=== PATIENT | male | born 1950 | race Caucasian/White ===

== ENCOUNTER 2021-06-17 10:33 | Day surgery (SDC) | payer MEDICARE, OTHER ==
[~2021-06-17] VITALS: Ht 188 cm; Wt 88.3 kg
[~2021-06-17 10:33] MED LIST: CLINDAMYCIN 150 MG/ML, 6ML ONE; TRANEXAMIC ACID 100 MG/ML, 10ML ONE; VANCOMYCIN 1,000 MG ONE
[2021-06-17 11:20] VITALS: BP 146/55
[2021-06-17] MEDS ORDERED: CHOL200040 PO (11:20)
[2021-06-17] MEDS ORDERED: DOXY25TA45 PO (11:20)
[2021-06-17] MEDS ORDERED: ADAL40PE INJ (11:20)
[2021-06-17] MEDS ORDERED: MULT-658 PO (11:20)
[2021-06-17] MEDS ORDERED: SILD100T PO (11:20)
[2021-06-17] MEDS ORDERED: CALCIUM (11:20)
[2021-06-17] MEDS ORDERED: TURM538C PO (11:20)
[2021-06-17] MEDS ORDERED: ASHW300C PO (11:20)
[2021-06-17] MEDS ORDERED: L.AC1CAP6 PO (11:20)
[2021-06-17] MEDS ORDERED: LACTATED RINGERS 1,000 ML IV SCH (11:30)
[2021-06-17] MEDS ORDERED: CHLORHEXIDINE 15 ML UDC PO ONE (11:30)
== END 2021-06-17 12:05 | disposition home or self-care (01) ==
LOC: OUT 10:33
PROVIDERS: ATTEND Orthopaedic Surgery
DX: M25.511 Pain in right shoulder (principal); Z53.8 Procedure and treatment not carried out for other reasons; Z20.822 Contact with and (suspected) exposure to COVID-19; Z79.899 Other long term (current) drug therapy
CPT/HCPCS: 87635; 93005; J3370